=== PATIENT | female | born 1950 | race Caucasian/White ===

== ENCOUNTER 2023-03-26 23:05 | Emergency (ER) | payer MEDICARE ==
[2023-03-26] MEDS ORDERED: Sodium Chloride 0.9% 10 ML Syringe FLUSH PRN (23:11)
[2023-03-26] MEDS ORDERED: Adenosine 6 MG/2 ML SDV IVPUSH ONE ×2 (23:16→23:26)
[2023-03-26 23:23] LABS: BASOPHILS PERCENT AUTO 1.3 % (0.1-1.3); EOSINOPHILS ABSOLUTE AUTO 0.45 K/uL (0.00-0.40); EOSINOPHILS PERCENT AUTO 5.7 % (0.0-5.4); HEMATOCRIT 43.4 % (34.3-46.0); HEMOGLOBIN 14.3 g/dL (11.2-15.5); IMMATURE GRAN PERCENT AUTO 0.3 % (0.0-0.7); LYMPHOCYTES ABSOLUTE AUTO 3.35 K/uL (0.8-3.3); LYMPHOCYTES PERCENT AUTO 42.1 % (11.4-47.7); MEAN CORPUSCULAR HEMOGLOBIN 29.1 pg (31.6-35.5); MEAN CORPUSCULAR HGB CONC 32.9 g/dL (31.6-35.5); MEAN CORPUSCULAR VOLUME 88.2 fL (81.4-99.0); MONOCYTES ABSOLUTE AUTO 0.99 K/uL (0.20-0.90); MONOCYTES PERCENT AUTO 12.4 % (3.3-12.6); NEUTROPHILS ABSOLUTE AUTO 3.05 K/uL (1.0-7.6); NEUTROPHILS PERCENT AUTO 38.2 % (40.0-78.1); PLATELET COUNT,PLT 247 K/uL (130-375); RED BLOOD CELL COUNT 4.92 M/uL (3.77-5.24)
[2023-03-26 23:25] LABS: IMMATURE GRAN ABSOLUTE AUTO 0.02 K/uL (0.00-0.23)
[2023-03-26] MEDS ORDERED: Adenosine 6 MG/2 ML SDV ONE (23:27)
[2023-03-26] MEDS ORDERED: Sodium Chloride 0.9% 1,000 ML IV SCH (23:30)
[2023-03-26] MEDS ORDERED: Ibutilide 1 MG/10 ML Vial IVPUSH ONE (23:51)
[2023-03-26 23:52] LABS: A/G RATIO 1.1 (1.2-2.2); ALANINE AMINOTRANSFERASE,ALT 27 U/L (12-78); ALBUMIN 3.7 g/dL (3.4-5.0); ALKALINE PHOSPHATASE 158 U/L (46-116); ANION GAP 12.3 mmol/L (5.0-14.0); ASPARTATE AMNIOTRANSFERASE,AST 24 U/L (15-37); BILIRUBIN TOTAL 0.3 mg/dL (0.2-1.0); BLOOD UREA NITROGEN,BUN 15 mg/dL (7-18); C-REACTIVE PROTEIN 0.15 mg/dL (0.0-0.3); CALCIUM 8.5 mg/dL (8.5-10.1); CARBON DIOXIDE,CO2 25 mmol/L (21-32); CHLORIDE,CL 103 mmol/L (100-108); CREATININE 0.8 mg/dL (0.6-1.0); ESTIMATED GFR 77 mL/min (>60); GLUCOSE RANDOM 146 mg/dL (74-106); POTASSIUM,K 3.3 mmol/L (3.6-5.2); SODIUM,NA 137 mmol/L (140-148); TSH ULTRASENSITIVE 1.907 uIU/mL (0.358-3.740)
== END 2023-03-27 01:15 | disposition home or self-care (01) ==
LOC: JP.ED 23:05
DX: I48.92 Unspecified atrial flutter (principal); Z98.890 Other specified postprocedural states; Z88.2 Allergy status to sulfonamides
CPT/HCPCS: 36415; 80053; 84443; 84484; 85025; 86140; 93005; 96374; 96375; 99285; J0153; J1742

== ENCOUNTER 2025-08-18 08:14 | Emergency (ER) | payer MEDICARE ==
[2025-08-18] MEDS ORDERED: Naloxone 0.4 MG/ML SDV IVPUSH PRN (09:53)
[2025-08-18 09:59] LABS: APPEARANCE,URINE CLEAR (CLEAR); GLUCOSE,URINE NEGATIVE (NEGATIVE); OCCULT BLOOD,URINE NEGATIVE (NEGATIVE)
[2025-08-18 10:07] LABS: SQUAMOUS EPITHELIAL CELLS,UR FEW /HPF
[2025-08-18 10:08] LABS: BASOPHILS ABSOLUTE AUTO 0.09 K/uL (0.00-0.10); BASOPHILS PERCENT AUTO 1.4 % (0.1-1.3); EOSINOPHILS ABSOLUTE AUTO 0.15 K/uL (0.00-0.40); EOSINOPHILS PERCENT AUTO 2.4 % (0.0-5.4); IMMATURE GRAN PERCENT AUTO 0.3 % (0.0-0.7); LYMPHOCYTES ABSOLUTE AUTO 1.41 K/uL (0.8-3.3); LYMPHOCYTES PERCENT AUTO 22.4 % (11.4-47.7); MONOCYTES ABSOLUTE AUTO 0.73 K/uL (0.20-0.90); MONOCYTES PERCENT AUTO 11.6 % (3.3-12.6); NEUTROPHILS ABSOLUTE AUTO 3.89 K/uL (1.0-7.6); NEUTROPHILS PERCENT AUTO 61.9 % (40.0-78.1); PLATELET COUNT,PLT 260 K/uL (130-375); RED BLOOD CELL COUNT 4.75 M/uL (3.77-5.24); WHITE BLOOD CELL COUNT,WBC 6.3 K/uL (3.2-11.0)
[2025-08-18 10:09] LABS: IMMATURE GRAN ABSOLUTE AUTO 0.02 K/uL (0.00-0.23)
[2025-08-18] MEDS: Ondansetron 4 MG/2 ML SDV IVPUSH ONE (10:14)
[2025-08-18] MEDS: Ketorolac 30 MG/ML SDV IVPUSH ONE (10:21)
[2025-08-18 10:29] LABS: A/G RATIO 1.2 (1.2-2.2); ALANINE AMINOTRANSFERASE,ALT 26 U/L (12-78); ASPARTATE AMNIOTRANSFERASE,AST 20 U/L (15-37); BILIRUBIN TOTAL 0.4 mg/dL (0.2-1.0); BLOOD UREA NITROGEN,BUN 19 mg/dL (7-18); CARBON DIOXIDE,CO2 28 mmol/L (21-32); CHLORIDE,CL 102 mmol/L (100-108); CREATINE KINASE,CK 136 U/L (26-192); CREATININE 0.7 mg/dL (0.6-1.0); EST CRCL DRUG DOSING (CG) 53.23 mL/min; ESTIMATED GFR 89 mL/min (>60); GLUCOSE RANDOM 108 mg/dL (74-106); POTASSIUM,K 4.3 mmol/L (3.6-5.2); PROTEIN TOTAL,TP 7.1 g/dL (6.4-8.2); SODIUM,NA 137 mmol/L (140-148)
[2025-08-18 10:30] LABS: SEDIMENTATION RATE MANUAL 14 mm/hr (0-25)
== END 2025-08-18 13:40 | disposition home or self-care (01) ==
LOC: JP.ED 08:14
DX: S22.000A Wedge compression fracture of unspecified thoracic vertebra, initial encounter for closed fracture (principal); S22.42XA Multiple fractures of ribs, left side, initial encounter for closed fracture; Z79.899 Other long term (current) drug therapy; Z88.2 Allergy status to sulfonamides; Z88.8 Allergy status to other drugs, medicaments and biological substances; X50.9XXA Other and unspecified overexertion or strenuous movements or postures, initial encounter
CPT/HCPCS: 36415; 71250; 74176; 80053; 81001; 82550; 85025; 85651; 86140; 96374; 96375; 99284; J2405; J7030; J1885